=== PATIENT | female | born 1980 | race Caucasian/White ===

== ENCOUNTER 2025-02-15 13:29 | Emergency (ER) | payer MEDICAID, SELFPAY ==
[2025-02-15 13:33] VITALS: BMI 23.6
[2025-02-15 14:16] VITALS: BP 150/98; PULSE 75; RESP 18; TEMP 37.1; O2SAT 96
--- NOTE | 2025-02-15 15:20 | PD.EDEAR ---
ED Ear RME/HPI General Chief complaint: Ear Stated complaint: Ear Pain right x 1 day Time Seen by Provider: 02/15/25 14:17 Arrival date/time: 02/15/25 13:29 44-year-old female presents to the Emergency Department today for complaints of infection to the right ear patient reports right ear pain and muffled sensation right ear Limitations: no limitations Related Data Previous Rx's ?Medication ?Instructions ?Recorded ofloxacin 0.3 % ear drops 10 drop otic (ear) QDAY 10 days 02/15/25 #10 mL Allergies Allergy/AdvReac Type Severity Reaction Status Date / Time Penicillins Allergy Severe Anaphylaxis Verified 02/15/25 13:33 Review of Systems Review of Systems Systems Reviewed: All systems reviewed, normal except as documented Constitutional Constitutional: Reports system reviewed and no additional complaints, except as documented, Denies fever(s) and Denies headache(s) Eyes Eyes: Reports system reviewed and no additional complaints, except as documented and Denies blurry vision ENT Ears, Nose, Mouth, and Throat: Reports system reviewed and no additional complaints, except as documented, Reports otalgia, Denies headache(s), Denies nasal congestion and Denies nasal discharge Cardiovascular Cardiovascular: Reports system reviewed and no additional complaints, except as documented, Denies chest pain and Denies dyspnea Respiratory Respiratory: Reports system reviewed and no additional complaints, except as documented, Denies chest congestion, Denies cough and Denies dyspnea Gastrointestinal Gastrointestinal: Reports system reviewed and no additional complaints, except as documented and Denies abdominal pain Integumentary/Breasts Skin/Breast: Reports system reviewed and no additional complaints, except as documented and Denies rash Neurologic Neurologic: Reports system reviewed and no additional complaints, except as documented, Reports as per HPI and Denies headache(s) Past Medical History Social History SMOKING STATUS: Never smoker ED Exam General Limitations: Present no limitations General appearance: Present alert and in no apparent distress Head Head exam: Present atraumatic Eye Eye exam: Present normal appearance, PERRL and EOMI ENT ENT exam: Present normal oropharynx and mucous membranes moist Expanded ENT Exam TM/Canal exam: Right TM: cerumen impaction Neck Neck exam: Present normal inspection, full ROM and trachea midline Chest Chest inspection: Present normal inspection and symmetric chest wall rise Respiratory Respiratory exam: Present normal lung sounds bilaterally Cardiovascular Cardiovascular exam: Present regular rate, normal rhythm and normal heart sounds Abdominal Exam Abdominal exam: Present soft and normal bowel sounds Extremities Exam Extremities exam: Present normal inspection and full ROM Back Exam Back exam: Present normal inspection and full ROM Neurological Exam Neurological exam: Present alert, oriented X3 and CN II-XII intact Psychiatric Psychiatric exam: Present normal affect and normal mood Skin Skin exam: Present warm, dry, intact and normal color Course Quality Measures none Orders Category Date Time Status ED Ear Irrigation X1 Care 02/15/25 14:19 Active Vital Signs Vital signs: Vital Signs Temperature 98.8 F 02/15/25 14:16 Pulse Rate 75 02/15/25 14:16 Respiratory Rate 18 02/15/25 14:16 Blood Pressure 150/98 H 02/15/25 14:16 Pulse Oximetry (%) 96 02/15/25 14:16 Oxygen Delivery Method Room Air 02/15/25 14:16 O2 saturation 96% on room air within her limits Procedures -ED Ear Wax Removal Right Ear: Cerumenolytic Used: other (N/A) Results: Re-examined: cerumen removed completely TM Examination: TM(s) intact, normal appearance Ear Canal Exam: atraumatic Patient Tolerated Procedure: well Complications: no problems Technique: ear canal irrigated Ear Patient data External records reviewed:: [facility] previous records Clinical information provided by:: patient Social determinants that could affect healthcare access:: none Patient has the following chronic illnesses:: None How is presenting disease/condition affected by chronic disease/condition?: no chronic disease Evaluation data The following diagnostics were reviewed and interpreted by me:: other (specify) (N/A) Lab and/or radiology exams considered but not ordered:: Considered not ordered Interpretation Summary: N/A Medications / Prescriptions Medications or Prescriptions considered but not ordered:: Given Medication administrations:: Given Consultations Consultation(s) initiated? (list below): No Diagnosis Ear Differential Diagnosis: otitis externa and otitis media Most likely diagnosis given after review of the tests above:: Otitis externa, cerumen impaction Admission Indicated Admission indicated?: not indicated Admission Request Was there a request for admission?: No Disposition Plan Disposition Plan: Discharge Discharge Attestation Discharge Attestation: The patient and all family members were given an opportunity to ask questions and understood the discharge instructions. Discharge instructions specifically effects, indications for sooner follow up or return to the emergency department, and the expected course of current diagnosis. Patient condition: Stable Medical Decision Making MDM Narrative MDM Narrative: 44-year-old female presents to the Emergency Department today for complaints of infection to the right ear patient reports right ear pain and muffled sensation right ear On exam patient has cerumen impaction of the right ear Right ear is irrigated I cannot clearly see the TM TM is within normal limits the canal is erythematous patient does appear to have otitis externa Patient was treated with ofloxacin Patient discharged home in no distress to follow-up with primary care doctor in the next 24 to 48 hours and for any worsening symptoms to return to the ER immediately Differential Diagnosis Differential Diagnosis: Otitis media, otitis externa Medical Records Medical records reviewed: Yes I reviewed the patient's medical records. Discharge Plan Plan Patient Disposition: HOME (Self Care) Disposition Comment: Stable Prescriptions/Referrals Prescriptions/Med Rec: New ofloxacin 0.3 % drops 10 drop otic (ear) QDAY 10 Days Qty: 10 0RF Problem List Clinical Impression: Otitis externa, Cerumen impaction Patient/Caregiver Discharge Instructions Education Materials: Anatomy of the Ear Additional Instructions: Please follow up with your primary care doctor in the next 24-48hrs for any worsening symptoms return here immediately Print Language: [place] Stand Alone Forms: Yennifer Award Info., Patient Portal Info Letter PA/MC Supervising Physician SEAN/MC Supervising Physician: dr rossi
== END 2025-02-15 17:54 | disposition home or self-care (01) ==
LOC: SERX 15:30
PROVIDERS: Emergency Provider Emergency Medicine
DX: H60.91 Unspecified otitis externa, right ear (principal); H61.21 Impacted cerumen, right ear
CPT/HCPCS: 69209; 99283